=== PATIENT | male | born 1945 | race Caucasian/White ===

== ENCOUNTER 2020-09-16 08:50 | Emergency (ER) | payer OTHER ==
--- NOTE | 2020-09-16 08:56 | ED Physician Documentation ---
PD HPI CHEST PAIN - Stated complaint Stated Complaint: PALPITATIONS - History obtained from History obtained from: Patient - History of Present Illness Timing - onset: How many hours ago (7-8) Timing - onset during: Sleep Timing - details: Abrupt onset, Still present (He has had episodes of fast heart rate and palpitations at of lasted for several minutes up to several hours. The episode last night started around 1 AM and has continued into this morning so he came in for evaluation. Denies lightheadedness dyspnea nor chest pain.) Quality: Tightness Location: Substernal Associated symptoms: Palpitations. No: Shortness of air, Nausea, Feeling faint / dizzy Similar symptoms before: Diagnosis (He has had similar episodes in the past and I had a 2-week heart monitor through his primary care in the [place]. He states he believes he had an episode of atrial fibrillation during it. He does not have the report with him. He currently does not take any medications for these, except aspirin.) Recently seen: Clinic Review of Systems Constitutional: denies: Fever, Chills Nose: denies: Rhinorrhea / runny nose, Congestion Throat: denies: Sore throat Cardiac: reports: Other (he is active and denies any exetional CP nor palpitations with activity. They have all occured at night during rest/sleep.). denies: Chest pain / pressure, Palpitations, Pedal edema, Calf pain Respiratory: denies: Dyspnea, Cough GI: denies: Nausea, Vomiting Endocrine: denies: Weight loss, Weight gain PD PAST MEDICAL HISTORY - Past Medical History Cardiovascular: Arrhythmia (he believes it was atrial fib episode on his 2 week monitor recently) Respiratory: None Neuro: None Endocrine/Autoimmune: None - Present Medications Home Medications: Ambulatory Orders Medication Instructions Recorded Confirmed Anastrozole 0.5 mg PO DAILY 09/16/20 09/16/20 Sildenafil Citrate [Revatio] 1 tab PO DAILY 09/16/20 09/16/20 Testosterone [Androgel] 09/16/20 diltiaZEM [Cardizem] 60 mg PO ONCE PRN #5 tab 09/16/20 - Allergies Allergies/Adverse Reactions: Allergies Allergy/AdvReac Type Severity Reaction Status Date / Time No Known Drug Allergies Allergy Verified 09/16/20 09:26 - Living Situation Living Situation: reports: With spouse/s.o. Living Arrangement: reports: At home - Social History Does the pt smoke?: No Does the pt have substance abuse?: No - Family History Family history: reports: Non contributory PD ED PE NORMAL - Vitals Vital signs reviewed: Yes - General General: Alert and oriented X 3, No acute distress, Well developed/nourished - HEENT HEENT: Moist mucous membranes, Pharynx benign - Neck Neck: Supple, no meningeal sign, No adenopathy, Thyroid normal - Cardiac Cardiac: RRR (heart rate is just slightly elevated on arrival and when first on monitor, appears sinus tachycardia. ), No murmur - Respiratory Respiratory: No respiratory distress, Clear bilaterally - Abdomen Abdomen: Soft, Non tender - Back Back: No CVA TTP - Derm Derm: Normal color, Warm and dry - Extremities Extremities: No edema, No calf tenderness / cord - Neuro Neuro: Alert and oriented X 3, No motor deficit, Normal speech Results - Vitals Vitals: Vital Signs - 24 hr 09/16/20 09/16/20 09/16/20 08:55 09:25 10:09 Temperature 36.4 C L Heart Rate 111 H 90 86 Respiratory 20 18 16 Rate Blood Pressure 125/80 121/70 107/84 H O2 Saturation 99 98 99 Oxygen O2 Source Room air - EKG (time done) 08:53 Rate: Rate (enter#) (105) Rhythm: Sinus tachycardia [place]: Normal Intervals: Normal [place] QRS: Normal Ischemia: Normal ST segments. No: ST elevation c/w ischemia, ST depression - Labs Labs: Laboratory Tests 09/16/20 09/16/20 09/16/20 08:55 08:55 08:55 WBC 7.1 RBC 4.36 L Hgb 14.4 Hct 43.7 MCV 100.2 H MCH 33.0 H MCHC 33.0 RDW 12.0 Plt Count 223 MPV 9.5 Neut # (Auto) 3.7 Lymph # (Auto) 2.5 [place] # (Auto) 0.6 Eos # (Auto) 0.1 Baso # (Auto) 0.1 Absolute Nucleated RBC 0.00 Nucleated RBC % 0.0 Sodium 142 Potassium 3.7 Chloride 101 Carbon Dioxide 28 Anion Gap 13.0 BUN 28 H Creatinine 1.1 Estimated GFR (MDRD) 65 L Glucose 100 Calcium 9.7 Magnesium 2.0 TSH 2.78 PD MEDICAL DECISION MAKING - ED course Complexity details: considered differential (Discussed with the patient various treatment options. His preference would be to have medication on hand to take with an episode to try to stop it sooner. This seemed a reasonable initial approach. Likely A. fib versus SVT and it has converted on arrival here without intervention.), d/w patient Departure - Departure Disposition: 01 Home, Self Care Clinical Impression: Paroxysmal atrial fibrillation Condition: Stable Record reviewed to determine appropriate education?: Yes Instructions: ED Afib Follow-Up: KENZIE FLORES MD [Primary Care Provider] - Prescriptions: diltiaZEM [Cardizem] 60 mg PO ONCE PRN #5 tab PRN Reason: Tachycardia Comments: Stay well-hydrated. Continue usual medication of an aspirin a day and your supplements including potassium supplement. Perhaps increase your potassium supplements slightly for the next week or 2. Presume these are episodes of atrial fibrillation. Contact your primary care to see what exactly your heart rhythm monitor had shown, whether atrial fibrillation or other SVT. When you get a recurrent episode, make sure you are well hydrated with 2 or 3 more glasses of water and wait half an hour and see if it gets better on its own. If not then try the diltiazem tablet and see if it helps you. It will take about 30 to 45 minutes for it to have an effect. Return if persistent episode despite the above treatments. Otherwise follow-up with your primary care regarding further treatments. Discharge Date/Time: 09/16/20 10:10
[2020-09-16 09:28] LABS: BASOPHILS # (AUTO) 0.1 10^3/uL (0.0-0.1); BASOPHILS % (AUTO) 0.7 %; EOSINOPHILS # (AUTO) 0.1 10^3/uL (0.0-0.7); EOSINOPHILS % (AUTO) 1.7 %; HGB - HEMOGLOBIN 14.4 g/dL (14.0-18.0); LYMPHOCYTES # (AUTO) 2.5 10^3/uL (1.5-3.5); LYMPHOCYTES % (AUTO) 35.5 %; MEAN CORPUSCULAR VOLUME 100.2 fL (80.0-94.0); MEAN PLATELET VOLUME 9.5 fL (7.4-11.4); MONOCYTES # (AUTO) 0.6 10^3/uL (0.0-1.0); MONOCYTES % (AUTO) 9.1 %; NEUTROPHILS # (AUTO) 3.7 10^3/uL (1.5-6.6); NEUTROPHILS % (AUTO) 52.9 %; PLT - PLATELET COUNT 223 10^3/uL (130-450); RED BLOOD COUNT 4.36 10^6/uL (4.70-6.10); WHITE BLOOD COUNT 7.1 x10^3/uL (4.8-10.8)
[2020-09-16 09:37] LABS: CALCIUM 9.7 mg/dL (8.5-10.3); CREATININE 1.1 mg/dL (0.6-1.2)
[2020-09-16 10:09] VITALS: BP 107/84
== END 2020-09-16 10:10 | disposition home or self-care (01) ==
LOC: ED 08:50
DX: I48.0 Paroxysmal atrial fibrillation (principal)
CPT/HCPCS: 36415; 80048; 83735; 84443; 85025; 93005; 99284

== ENCOUNTER 2020-12-07 21:47 | Emergency (ER) | payer OTHER ==
--- NOTE | 2020-12-07 22:08 | ED Physician Documentation ---
PD HPI MALE - Stated complaint Stated Complaint: MALE - Chief complaint Chief Complaint: UTI - History obtained from History obtained from: Patient - History of Present Illness Timing - onset: Today Timing - duration: Minutes Timing - details: Abrupt onset, Still present Associated symptoms: Hematuria. No: Dysuria, Urinary frequency PD HPI MALE CONTRIB FACTORS: Not sexually active. No: Indwelling catheter Similar symptoms before: Has not had sx before Recently seen: Emergency Dept (two months ago) - Additional information Additional information: Previously well 75-year-old man on testosterone has developed a subconjunctival hemorrhage in his right eye 1 week ago and today out of nowhere he has developed acute hematuria. He indicates that he works out his normal amount and did look a bit less today than he usually does. He indicates that he has had a prior issue with rapid heart rate and believes he has had atrial fibrillation and he is on aspirin with that. He is not on any other formal anticoagulant. He denies any specific pain denies any difficulty with urination denies any injuries. He has not had this previously. Review of Systems Constitutional: denies: Fever, Chills, Myalgias, Fatigue Eyes: denies: Decreased vision Ears: denies: Ear pain Nose: denies: Rhinorrhea / runny nose, Congestion, Foreign Body Throat: denies: Sore throat Cardiac: denies: Chest pain / pressure, Palpitations Respiratory: denies: Dyspnea, Cough GI: denies: Abdominal Pain, Nausea, Vomiting : reports: Hematuria. denies: Dysuria, Frequency, Discharge Skin: denies: Rash Musculoskeletal: denies: Neck pain, Back pain, Extremity pain PD PAST MEDICAL HISTORY - Past Medical History Cardiovascular: Arrhythmia (he believes it was atrial fib episode on his 2 week monitor recently) Respiratory: None Neuro: None Endocrine/Autoimmune: None - Present Medications Home Medications: Ambulatory Orders Medication Instructions Recorded Confirmed Anastrozole 0.5 mg PO DAILY 09/16/20 09/16/20 Sildenafil Citrate [Revatio] 1 tab PO DAILY 09/16/20 09/16/20 Testosterone [Androgel] 09/16/20 diltiaZEM [Cardizem] 60 mg PO ONCE PRN #5 tab 09/16/20 - Allergies Allergies/Adverse Reactions: Allergies Allergy/AdvReac Type Severity Reaction Status Date / Time No Known Drug Allergies Allergy Verified 09/16/20 09:26 - Social History Does the pt smoke?: No Smoking Status: Never smoker Does the pt have substance abuse?: No PD ED PE NORMAL - Vitals Vital signs reviewed: Yes (Normal) - General General: Alert and oriented X 3, No acute distress, Well developed/nourished - HEENT HEENT: Atraumatic, PERRL, EOMI - Neck Neck: Supple, no meningeal sign, No bony TTP - Cardiac Cardiac: RRR, No murmur - Respiratory Respiratory: No respiratory distress, Clear bilaterally - Abdomen Abdomen: Soft, Non tender - Back Back: No CVA TTP, No spinal TTP - Derm Derm: Normal color, Warm and dry, No rash - Extremities Extremities: No deformity, No edema - Neuro Neuro: Alert and oriented X 3, 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-12 intact, No motor deficit, No sensory deficit, Normal speech Eye Opening: Spontaneous Motor: Obeys Commands Verbal: Oriented GCS Score: 15 - Psych Psych: Normal mood, Normal affect Results - Vitals Vitals: Vital Signs - 24 hr 12/07/20 12/08/20 12/08/20 21:59 00:03 02:57 Temperature 36.9 C Heart Rate 83 76 83 Respiratory 18 18 18 Rate Blood Pressure 126/72 146/71 H 122/68 O2 Saturation 97 99 98 12/08/20 04:00 Temperature Heart Rate 100 Respiratory 18 Rate Blood Pressure 123/85 H O2 Saturation 100 Oxygen O2 Source Room air - Labs Labs: Laboratory Tests 12/07/20 12/07/20 12/07/20 22:10 22:10 22:10 WBC 6.0 RBC 3.62 L Hgb 11.9 L Hct 35.7 L MCV 98.6 H MCH 32.9 H MCHC 33.3 RDW 12.4 Plt Count 168 MPV 8.5 Neut # (Auto) 4.0 Lymph # (Auto) 1.3 L [place] # (Auto) 0.6 Eos # (Auto) 0.0 Baso # (Auto) 0.0 Absolute Nucleated RBC 0.00 Nucleated RBC % 0.0 PT 12.4 INR 1.1 APTT 30.5 Sodium 142 Potassium 4.0 Chloride 103 Carbon Dioxide 29 Anion Gap 10.0 BUN 21 H Creatinine 1.0 Estimated GFR (MDRD) 72 L Glucose 100 Calcium 9.3 Total Bilirubin 0.7 AST 35 ALT 27 Alkaline Phosphatase 72 Total Protein 7.2 Albumin 4.3 Globulin 2.9 Albumin/Globulin Ratio 1.5 Lipase 39 Urine Color Urine Clarity Urine pH Ur Specific [place] Urine Protein Urine Glucose (UA) Urine Ketones Urine Occult Blood Urine Nitrite Urine Bilirubin Urine Urobilinogen Ur Leukocyte Esterase Urine RBC Urine WBC Ur Squamous Epith Cells Urine Bacteria Ur Microscopic Review Urine Culture Comments 12/07/20 22:34 WBC RBC Hgb Hct MCV MCH MCHC RDW Plt Count MPV Neut # (Auto) Lymph # (Auto) [place] # (Auto) Eos # (Auto) Baso # (Auto) Absolute Nucleated RBC Nucleated RBC % PT INR APTT Sodium Potassium Chloride Carbon Dioxide Anion Gap BUN Creatinine Estimated GFR (MDRD) Glucose Calcium Total Bilirubin AST ALT Alkaline Phosphatase Total Protein Albumin Globulin Albumin/Globulin Ratio Lipase Urine Color RED/BLOODY Urine Clarity BLOODY Urine pH 7.0 Ur Specific [place] 1.025 Urine Protein >=300 H Urine Glucose (UA) NEGATIVE Urine Ketones NEGATIVE Urine Occult Blood LARGE H Urine Nitrite POSITIVE H Urine Bilirubin NEGATIVE Urine Urobilinogen 0.2 (NORMAL) Ur Leukocyte Esterase NEGATIVE Urine RBC TNTC H Urine WBC 0-3 Ur Squamous Epith Cells NONE SEEN Urine Bacteria None Seen Ur Microscopic Review INDICATED Urine Culture Comments INDICATED - Rads (name of study) CT ab/pel with Radiology: Prelim report reviewed (Impression: Left posterior lateral exophytic bladder mass extending into the bladder lumen with associated blood clot in the bladder. This appearance could also potentially be due to blood products within a bladder diverticulum and in the bladder lumen. Consider cystoscopy. Nonemergent/incidental), EMP read indepedently, See rad report PD MEDICAL DECISION MAKING - ED course Complexity details: reviewed results, re-evaluated patient, considered differential, d/w patient ED course: Previously well 75-year-old male has developed some hematuria and CT scanning shows what appears to be a bladder diverticula for blood a Hubbard catheter is placed with three-way irrigation and the bladder is irrigated to clear.The patient had over a liter out and will need to have the cath. Place for likely a week or more. The patient will need follow-up with urology and he does not have a urologist. We will refer him to urology in [place]. Departure - Departure Disposition: 01 Home, Self Care Clinical Impression: Clot retention of urine Condition: Stable Instructions: ED Hematuria, ED Catheter Care Hubbard, ED Retention Urinary Male Follow-Up: KENZIE FLORES MD [Primary Care Provider] - Mary Hogan MD [Physician No Access] - Neil Rothman MD [Provider Admit Priv/Credential] - Skinny Nazario MD [Provider Admit Priv/Credential] - Comments: Today the blood in the urine looks like it comes from the edge of a diverticula in the bladder and this has caused some clot retention. This will require the placement of the Hubbard catheter for 1 or more weeks. You will need a follow-up with urology for further evaluation in the next week. I have left the number of [facility] clinics and the names of 3 urologists. Call them on Thursday to e an appointment. In the meantime if you develop a problem with not being able to urinate or with urine stopping from coming through the bag, or you develop radha bleeding again, return to the emergency department for further treatment.
[2020-12-07 22:15] LABS: BASOPHILS % (AUTO) 0.7 %; EOSINOPHILS % (AUTO) 0.5 %; HCT - HEMATOCRIT 35.7 % (42.0-52.0); HGB - HEMOGLOBIN 11.9 g/dL (14.0-18.0); LYMPHOCYTES # (AUTO) 1.3 10^3/uL (1.5-3.5); LYMPHOCYTES % (AUTO) 21.5 %; MEAN CORPUSCULAR HEMOGLOBIN 32.9 pg (27.0-31.0); MEAN CORPUSCULAR HGB CONC 33.3 g/dL (32.0-36.0); MEAN CORPUSCULAR VOLUME 98.6 fL (80.0-94.0); MEAN PLATELET VOLUME 8.5 fL (7.4-11.4); MONOCYTES # (AUTO) 0.6 10^3/uL (0.0-1.0); MONOCYTES % (AUTO) 9.4 %; NEUTROPHILS % (AUTO) 67.7 %; PLT - PLATELET COUNT 168 10^3/uL (130-450); RED BLOOD COUNT 3.62 10^6/uL (4.70-6.10); RED CELL DISTRIBUTION WIDTH 12.4 % (12.0-15.0)
[2020-12-07 22:24] LABS: INR 1.1 (0.8-1.2); PT - PROTHROMBIN TIME 12.4 secs (9.9-12.6)
[2020-12-07 22:29] LABS: ALBUMIN 4.3 g/dL (3.2-5.5); ALBUMIN/GLOBULIN RATIO 1.5 (1.0-2.2); BILIRUBIN,TOTAL 0.7 mg/dL (0.2-1.0); CALCIUM 9.3 mg/dL (8.5-10.3); TOTAL PROTEIN 7.2 g/dL (6.7-8.2)
[2020-12-07 22:33] LABS: PARTIAL THROMBOPLASTIN TIME 30.5 secs (24.9-33.3)
[2020-12-07 22:47] LABS: BILIRUBIN,URINE NEGATIVE (NEGATIVE); GLUCOSE, URINE (UA) NEGATIVE (NEGATIVE); KETONES,URINE (UA) NEGATIVE (NEGATIVE); LEUKOCYTE ESTERASE, URINE NEGATIVE (NEGATIVE); NITRITE,URINE POSITIVE (NEGATIVE); OCCULT BLOOD,URINE LARGE (NEGATIVE); PROTEIN,URINE >=300 mg/dL (NEGATIVE); UROBILINOGEN,URINE 0.2 (NORMAL) E.U./dL (NORMAL)
[2020-12-07 22:54] LABS: CLARITY,URINE BLOODY (CLEAR); RBC,URINE TNTC /HPF (0-5); WBC,URINE 0-3 /HPF (0-3)
[2020-12-07 22:55] LABS: BACTERIA,URINE None Seen /HPF (None Seen); SQUAMOUS EPITHELIAL CELL,UR NONE SEEN (<= Few)
[2020-12-08] MEDS ORDERED: IOPAMIDOL-300 100 ML VIAL ONE (00:58)
[2020-12-08] MEDS ORDERED: IOPAMIDOL-300 100 ML VIAL IVP ONE (01:27)
[2020-12-08] MEDS ORDERED: SODIUM CHLORIDE 0.9% 1,000 ML IV STA (01:35)
[2020-12-08] MEDS ORDERED: LIDOCAINE 2% URO-JET 5 ML SYRINGE UR STA (02:28)
[2020-12-08 06:01] VITALS: BP 122/67
--- NOTE | 2020-12-08 08:19 | CT Report ---
PROCEDURE: Abdomen/Pelvis W INDICATIONS: hematuria CONTRAST: IV CONTRAST: Isovue 300 ml: 100 PO CONTRAST: *NO PO CONTRAST TECHNIQUE: After the administration of nonionic IV contrast, 5 mm thick sections acquired from the diaphragms to the symphysis. 5 mm thick coronal and sagittal reformats were acquired. For radiation dose reducti on, the following was used: automated exposure control, adjustment of mA and/or kV according to monica ent size. COMPARISON: None. FINDINGS: Image quality: Excellent. ABDOMEN: Lung bases: Lung bases are clear. Heart size is normal. Solid organs: Liver and spleen are normal in size and enhancement. Splenic granulomas are seen. Gal lbladder wall does not appear thickened. Biliary system is non dilated. Pancreas enhances normall y. No adrenal nodules. Kidneys demonstrate normal size and enhancement, without hydronephrosis. Th ere is a water density cyst measuring 1.5 cm within the lateral right kidney. Peritoneum and bowel: Bowel loops demonstrate normal wall thickness and caliber. No free fluid or a ir. There is a moderate amount of stool seen within the colon. Nodes and vessels: No retroperitoneal or mesenteric adenopathy by size criteria. Aorta and inferior vena cava are normal in size. Miscellaneous: No ventral hernias. PELVIS: Genitourinary: Bladder is abnormal, with hyperdense material posteriorly, which most likely relates t o blood. 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 Miscellaneous: No inguinal hernias or adenopathy. Bones: No suspicious bony lesions. No vertebral body compression fractures. There is focal L5-S1 de generative change. Milder degenerative changes are seen elsewhere. IMPRESSION: Blood can be seen layering within the urinary bladder and within a left-sided bladder diverticulum. A cause of hematuria is not identified. No stones or renal masses are seen. Urology consultation for consideration of cystoscopy is recommended. Please also consider a dedicated hematuria protocol CT. There is a moderate amount of stool seen within the colon. Please correlate with clinical constipatio n. Incidental note is made of: Prior granulomatous exposure. Focal L5-S1 degenerative change Note: No significant discrepancy from the preliminary report. Reviewed by: Ravindra Dutton MD on 12/08/2020 7:17 AM AKDT Approved by: Ravindra Dutton MD on 12/08/2020 7:17 AM KENNY Station ID: [id number]
== END 2020-12-08 06:03 | disposition home or self-care (01) ==
LOC: ED 21:47
DX: R33.8 Other retention of urine (principal); N32.3 Diverticulum of bladder
CPT/HCPCS: 36415; 51700; 80053; 81001; 81003; 83690; 85025; 85610; 85730; 87086; 99284

== ENCOUNTER 2020-12-08 13:35 | Emergency (ER) | payer OTHER ==
--- NOTE | 2020-12-08 14:33 | ED Physician Documentation ---
History of Present Illness - Stated complaint Stated Complaint: BLOOD IN URINE - Chief complaint Chief Complaint: Abd Pain - Additonal information Additional information: 75-year-old male returns to the emergency department for evaluation of persistent hematuria. This gentleman was seen last night in the emergency department for blood in his urine and urinary retention. A CT scan was completed and it did show a bladder diverticula. Ultimately he required Hubbard catheter placement. In addition to this he did have bladder irrigation. He was discharged home with recommendations to follow-up with urology. He presents here today because he is concerned about the amount of blood in his Hubbard catheter. He reports that it continues to drain but he is able to express large clots. He has no fevers denies abdominal pain flank pain or suprapubic pain. Review of Systems Constitutional: denies: Fever, Chills Eyes: reports: Reviewed and negative Ears: reports: Reviewed and negative Nose: reports: Reviewed and negative Throat: reports: Dental pain / toothache Cardiac: reports: Reviewed and negative Respiratory: reports: Reviewed and negative GI: reports: Reviewed and negative : reports: Hematuria Skin: reports: Reviewed and negative Musculoskeletal: reports: Reviewed and negative Neurologic: reports: Reviewed and negative Psychiatric: reports: Reviewed and negative Endocrine: reports: Reviewed and negative PD PAST MEDICAL HISTORY - Past Medical History Past Medical History: Yes Cardiovascular: Atrial fibrillation, Arrhythmia Respiratory: None Neuro: None Endocrine/Autoimmune: None : Benign prostate hypertrophy, Retention, Other HEENT: None Psych: None Musculoskeletal: None - Past Surgical History Past Surgical History: Yes HEENT: Tonsil/Adenoidectomy - Present Medications Home Medications: Ambulatory Orders Medication Instructions Recorded Confirmed Anastrozole 0.5 mg PO DAILY 09/16/20 12/08/20 Sildenafil Citrate [Revatio] 1 tab PO DAILY 09/16/20 12/08/20 Testosterone [Androgel] 1 applic TOP ONCE 09/16/20 12/08/20 diltiaZEM [Cardizem] 60 mg PO ONCE PRN #5 tab 09/16/20 12/08/20 - Allergies Allergies/Adverse Reactions: Allergies Allergy/AdvReac Type Severity Reaction Status Date / Time Penicillins Allergy Unknown Verified 12/08/20 13:40 - Social History Does the pt smoke?: No Smoking Status: Never smoker Does the pt drink ETOH?: No Does the pt have substance abuse?: No - Immunizations Immunizations are current?: Yes PD ED PE EXPANDED - General General: Alert, No acute distress - Cardiac Cardiac: Regular Rate, Radial strong equal, Cap refill < 2 sec - Respiratory Respiratory: Clear to ausultation antonina. No: Distress, Labored - Abdomen Abdomen: Normal Bowel sounds. No: Tender to palpation - Male Male : Other (Large amount of bloody discharge in the Hubbard catheter bag. Urine appears to be draining.) - Derm Derm: Normal color, Warm and dry. No: Rash Results - Vitals Vitals: Vital Signs - 24 hr 12/08/20 12/08/20 12/08/20 13:40 14:58 16:23 Temperature 36.7 C Heart Rate 88 72 73 Respiratory 16 18 18 Rate Blood Pressure 110/62 115/66 O2 Saturation 98 100 99 Oxygen O2 Source Room air - Labs Labs: Laboratory Tests 12/08/20 12/08/20 14:40 14:50 WBC 12.0 H RBC 3.34 L Hgb 11.3 L Hct 33.0 L MCV 98.8 H MCH 33.8 H MCHC 34.2 RDW 12.4 Plt Count 175 MPV 9.0 Urine Color RED/BLOODY Urine Clarity CLOUDY Urine pH 7.0 Ur Specific [place] 1.010 Urine Protein >=300 H Urine Glucose (UA) 100 H Urine Ketones 15 H Urine Occult Blood LARGE H Urine Nitrite POSITIVE H Urine Bilirubin NEGATIVE Urine Urobilinogen 4 H Ur Leukocyte Esterase MODERATE H Urine RBC TNTC H Urine WBC 6-10 H Ur Squamous Epith Cells RARE Squamous Urine Bacteria None Seen Urine Culture Comments INDICATED PD MEDICAL DECISION MAKING - ED course Complexity details: reviewed results, re-evaluated patient, d/w patient ED course: 75-year-old male presents emergency department for concerns of excessive hematuria in his Hubbard catheter that was placed last night in the emergency department after he had urinary retention and hematuria. A subsequent CT scan did show a bladder diverticula. Here in the emergency department on presentation his urine was frankly bloody and multiple large clots were obstructing the flow of the urine. In ED bladder scan showed however a residual of only 151 mL. Given the amount of blood a repeat hemogram was completed and it did show a mild drop from 11.9 to 11.6. We did do 4 L of continuous bladder irrigation here in the emergency department. Following the 4 L the patient is draining nearly clear urine with no further clots visible. Given the the concern of hematuria and bladder diverticula it was impressed upon the patient that it is important that he continue to follow-up with urology. Emergent return precautions were discussed for concerns of obstruction or worsening hematuria. Departure - Departure Disposition: 01 Home, Self Care Clinical Impression: Bladder diverticulum, Hubbard catheter in place prior to arrival Hematuria Qualifiers: Hematuria type: gross Qualified Code(s): R31.0 - Gross hematuria Condition: Stable Record reviewed to determine appropriate education?: Yes Comments: Mannie kingston were seen in the emergency department today for an excessive amount of blood and clots in your Hubbard catheter. This blood is likely coming from the diverticula in your bladder. We were able to successfully irrigate your bladder free of the clots. However it is very important that you continue to follow-up with urology as already Discussed and referred. If your hematuria worsens or you have clots that again obstruct the flow of your catheter you will need to return immediately to the emergency department. Indwelling Hubbard catheters can lead to urinary or bladder infection. If you develop flank pain, fevers chills or have uncontrolled nausea and vomiting or any concerns of infection within the urine please return to the emergency department for a second evaluation.
[2020-12-08 14:49] LABS: HGB - HEMOGLOBIN 11.3 g/dL (14.0-18.0); MEAN CORPUSCULAR HEMOGLOBIN 33.8 pg (27.0-31.0); MEAN CORPUSCULAR HGB CONC 34.2 g/dL (32.0-36.0); MEAN CORPUSCULAR VOLUME 98.8 fL (80.0-94.0); RED BLOOD COUNT 3.34 10^6/uL (4.70-6.10); RED CELL DISTRIBUTION WIDTH 12.4 % (12.0-15.0)
[2020-12-08 15:26] LABS: BILIRUBIN,URINE NEGATIVE (NEGATIVE); GLUCOSE, URINE (UA) 100 mg/dL (NEGATIVE); KETONES,URINE (UA) 15 mg/dL (NEGATIVE); LEUKOCYTE ESTERASE, URINE MODERATE (NEGATIVE); NITRITE,URINE POSITIVE (NEGATIVE); OCCULT BLOOD,URINE LARGE (NEGATIVE); PROTEIN,URINE >=300 mg/dL (NEGATIVE); UROBILINOGEN,URINE 4 E.U./dL (NORMAL)
[2020-12-08 15:27] LABS: BACTERIA,URINE None Seen /HPF (None Seen); CLARITY,URINE CLOUDY (CLEAR); RBC,URINE TNTC /HPF (0-5); SQUAMOUS EPITHELIAL CELL,UR RARE Squamous (<= Few)
[2020-12-08 17:00] VITALS: BP 123/72
== END 2020-12-08 17:11 | disposition home or self-care (01) ==
LOC: ED 13:35
DX: R33.8 Other retention of urine (principal); N32.3 Diverticulum of bladder; Z97.8 Presence of other specified devices
CPT/HCPCS: 36415; 51700; 51798; 74177; 80053; 81001; 83690; 85025; 85027; 85610; 85730; 87086; 99283; 99284; Q9967; 81003

== ENCOUNTER 2020-12-10 09:42 | Observation (INO) | payer OTHER ==
--- NOTE | 2020-12-10 10:22 | ED Physician Documentation ---
PD HPI MALE - Stated complaint Stated Complaint: CATH CLOG - Chief complaint Chief Complaint: Abd Pain - History obtained from History obtained from: Patient - History of Present Illness Timing - onset: How many days ago (4) Timing - duration: Days (4) Timing - details: Abrupt onset, Still present Associated symptoms: Hematuria (Patient noted onset of gross hematuria 4 days ago without any pain fevers or flank pain. Seen in the ER and had a urine test and blood tests without any signs of infection. Subsequently had urinary retention with clots and was seen again in the ER with Hubbard placed and bladder irrigated.). No: Dysuria, Genital sore / lesion Recently seen: Emergency Dept (Seen in our ER 4 days ago with the initial hematuria and then again for retention with clots in Hubbard placement. He had been irrigating this at home. He felt clogged again and seen at [facility] last night with irrigation of the catheter again. He was referred to urology. No admission.). No: Clinic (From the ER the patient was referred to urology in [facility] but they told the patient he needed a referral from his primary care. He talked with his primary care who is trying to expedite a referral but it was likely going to take a few weeks. He was seen again at [facility] for same.) Review of Systems Constitutional: denies: Fever, Chills Nose: denies: Rhinorrhea / runny nose, Congestion Throat: denies: Sore throat Cardiac: reports: Palpitations (intermittently about once per month, that lasts for minutes to hours c/w atrial fib. Not chronic.). denies: Chest pain / pressure Respiratory: denies: Cough GI: denies: Abdominal Pain, Nausea, Vomiting, Diarrhea : reports: Hematuria Skin: denies: Rash, Lesions Musculoskeletal: denies: Extremity swelling Neurologic: reports: Generalized weakness. denies: Near syncope, Headache PD PAST MEDICAL HISTORY - Past Medical History Cardiovascular: Atrial fibrillation (paroxysmal, about once monthly, on ASA. No anticoagulants. ), Arrhythmia Respiratory: None Neuro: None Endocrine/Autoimmune: None : Benign prostate hypertrophy, Retention, Other HEENT: None Psych: None Musculoskeletal: None - Past Surgical History Past Surgical History: Yes HEENT: Tonsil/Adenoidectomy - Present Medications Home Medications: Ambulatory Orders Medication Instructions Recorded Confirmed Anastrozole 0.5 mg PO DAILY 09/16/20 12/10/20 Sildenafil Citrate [Revatio] 1 tab PO DAILY 09/16/20 12/10/20 Testosterone [Androgel] 1 applic TOP ONCE 09/16/20 12/10/20 diltiaZEM [Cardizem] 60 mg PO ONCE PRN #5 tab 09/16/20 12/10/20 - Allergies Allergies/Adverse Reactions: Allergies Allergy/AdvReac Type Severity Reaction Status Date / Time Penicillins Allergy Unknown Verified 12/10/20 10:01 - Living Situation Living Situation: reports: Alone Living Arrangement: reports: At home - Social History Does the pt smoke?: No Smoking Status: Never smoker Does the pt drink ETOH?: No Does the pt have substance abuse?: No - Family History Family history: reports: Non contributory - Immunizations Immunizations are current?: Yes PD ED PE NORMAL - Vitals Vital signs reviewed: Yes - General General: Alert and oriented X 3, No acute distress, Well developed/nourished - HEENT HEENT: Moist mucous membranes, Pharynx benign - Neck Neck: Supple, no meningeal sign, No adenopathy - Cardiac Cardiac: RRR (initially regular with mild tachycardia. ), No murmur - Respiratory Respiratory: Clear bilaterally - Abdomen Abdomen: Soft, Non tender - Male Male : Other (Three-way Hubbard catheter in place with some clots in the visible tubing and gross hematuria. Bladder scanner showed only about 70 mils in the b ladder.) - Rectal Rectal: Deferred - Back Back: No CVA TTP - Derm Derm: Normal color, Warm and dry, No rash - Extremities Extremities: No tenderness to palpate, Normal ROM s pain, No edema, No calf tenderness / cord - Neuro Neuro: Alert and oriented X 3, No motor deficit, Normal speech Results - Vitals Vitals: Vital Signs - 24 hr 12/10/20 12/10/20 12/10/20 09:57 11:40 13:14 Temperature 36.4 C L Heart Rate 117 H 88 68 Respiratory 20 16 18 Rate Blood Pressure 107/63 115/84 H 105/84 H O2 Saturation 97 100 96 12/10/20 12/10/20 12/10/20 13:48 14:24 14:49 Temperature Heart Rate 150 H 156 H 97 Respiratory 16 15 14 Rate Blood Pressure 119/70 102/66 112/63 O2 Saturation 99 94 100 12/10/20 12/10/20 15:37 17:09 Temperature Heart Rate 99 108 H Respiratory 16 Rate Blood Pressure 93/64 113/88 H O2 Saturation 96 Oxygen O2 Source Room air - EKG (time done) 14:06 Rate: Rate (enter#) (150) Rhythm: Atrial fibrillation [place]: Normal Ischemia: Normal ST segments, ST depression (lateral, likely rate related. ). No: ST elevation c/w ischemia - Labs Labs: Laboratory Tests 12/10/20 12/10/20 13:53 13:53 WBC 11.1 H RBC 2.63 L Hgb 8.8 L Hct 26.7 L MCV 101.5 H MCH 33.5 H MCHC 33.0 RDW 12.4 Plt Count 168 MPV 9.0 Neut # (Auto) 8.5 H Lymph # (Auto) 1.7 Harris # (Auto) 0.8 Eos # (Auto) 0.0 Baso # (Auto) 0.0 Absolute Nucleated RBC 0.00 Nucleated RBC % 0.0 Sodium 136 Potassium 3.8 Chloride 99 L Carbon Dioxide 24 Anion Gap 13.0 BUN 13 Creatinine 1.2 Estimated GFR (MDRD) 59 L Glucose 131 H Calcium 9.0 Total Bilirubin 0.8 AST 37 ALT 24 Alkaline Phosphatase 63 Total Protein 6.6 L Albumin 3.8 Globulin 2.8 Albumin/Globulin Ratio 1.4 Lipase 34 PD MEDICAL DECISION MAKING - ED course Complexity details: reviewed old records, re-evaluated patient, d/w systems management consultant (Urology cloud automation tester at [facility], who states the patient would best be treated hospitalized for more expeditious treatment, given the drop in Hgb. However they do not have beds available at this time.) ED course: The patient did have some urine retention mildly with clots. Bladder was irrigated here in the ER and the clots came out and he is draining still hematuria without clots at this time. We were trying to arrange urology follow- up and the patient did go then into fast rate atrial fibrillation. He felt somewhat generally weak and lightheaded with it. IV was started and he was given some fluids as well as diltiazem IV. This slowed his heart rate down from 160 down to 100-110 and then he converted back to sinus rhythm. Blood pressure remained good. He is feeling better at this time. During this we did check blood test of hemoglobin and electrolytes. His hemoglobin showed a drop from 11.3 down to 8.8 just over the last couple of days showing reasonable amount of continued hematuria. [facility] deferred treatment to other facilities. At this point however, there were no beds available at [facility]. With no beds available in other facilities, one possibility would be to have the patient here with bladder irrigation episodically and watching on the monitor and check serial hemoglobins over the next 6 to 12 hours. At that point [facility] is expecting bed availability either later this evening or tomorrow and we could transfer at that point. The nursing production planning supervisor talked with the hospitalist about that possibility. He defers it to the evening hospitalist for confirmation if no beds are as yet available and other facilities. Departure - Departure Clinical Impression: Clot retention of urine, Paroxysmal atrial fibrillation, Drop in hemoglobin Hematuria Qualifiers: Hematuria type: gross Qualified Code(s): R31.0 - Gross hematuria Condition: Stable Record reviewed to determine appropriate education?: Yes Follow-Up: KENZIE FLORES MD [Physician No Access] - [facility] [Provider Group] Comments: Use the saline to irrigate the bladder periodically through the day through the Hubbard. As of this instruction time, neither Dr. Flores nor the [place] urology have called back. I would not anticipate them wanting to transfer you there directly today. As such I think we can discharge you home and when they do call I will try to arrange a closer follow-up with them for you. Call Dr. Flores's office tomorrow to see if they can expedite further follow- up or referrals.
[2020-12-10 14:05] LABS: BASOPHILS % (AUTO) 0.3 %; EOSINOPHILS % (AUTO) 0.1 %; HCT - HEMATOCRIT 26.7 % (42.0-52.0); HGB - HEMOGLOBIN 8.8 g/dL (14.0-18.0); LYMPHOCYTES # (AUTO) 1.7 10^3/uL (1.5-3.5); LYMPHOCYTES % (AUTO) 15.5 %; MEAN CORPUSCULAR HEMOGLOBIN 33.5 pg (27.0-31.0); MEAN CORPUSCULAR VOLUME 101.5 fL (80.0-94.0); MONOCYTES # (AUTO) 0.8 10^3/uL (0.0-1.0); NEUTROPHILS # (AUTO) 8.5 10^3/uL (1.5-6.6); NEUTROPHILS % (AUTO) 76.5 %; PLT - PLATELET COUNT 168 10^3/uL (130-450); RED BLOOD COUNT 2.63 10^6/uL (4.70-6.10); RED CELL DISTRIBUTION WIDTH 12.4 % (12.0-15.0); WHITE BLOOD COUNT 11.1 x10^3/uL (4.8-10.8)
[2020-12-10] MEDS ORDERED: SODIUM CHLORIDE 0.9% 500 ML IV STA (14:11)
[2020-12-10] MEDS ORDERED: diltiaZEM INJ 5 MG/ML VIAL IVP STA (14:11)
[2020-12-10 14:20] LABS: ALBUMIN 3.8 g/dL (3.2-5.5); ALBUMIN/GLOBULIN RATIO 1.4 (1.0-2.2); BILIRUBIN,TOTAL 0.8 mg/dL (0.2-1.0); CREATININE 1.2 mg/dL (0.6-1.2); POTASSIUM 3.8 mmol/L (3.5-5.0); TOTAL PROTEIN 6.6 g/dL (6.7-8.2)
[2020-12-10 20:25] LABS: B. PARAPERTUSSIS- RESP PCR PAN NOT DETECTED; B. PERTUSSIS- RESP PCR PANEL NOT DETECTED; C. PNEUMONIAE- RESP PCR PANEL NOT DETECTED; CORONAVIRUS 229E-RESP PCR NOT DETECTED; CORONAVIRUS HKU1-RESP PCR NOT DETECTED; CORONAVIRUS NL63-RESP PCR NOT DETECTED; CORONAVIRUS OC43-RESP PCR NOT DETECTED; HUMAN METAPNEUMOVIRUS NOT DETECTED; INFLUENZA A- RESP PCR PANEL NOT DETECTED; INFLUENZA B - RESP PCR PANEL NOT DETECTED; M. PNEUMONIAE- RESP PCR PANEL NOT DETECTED; PARAINFLUENZA VIRUS 1 NOT DETECTED; PARAINFLUENZA VIRUS 2 NOT DETECTED; PARAINFLUENZA VIRUS 3 NOT DETECTED; PARAINFLUENZA VIRUS 4 NOT DETECTED; RHINOVIRUS/ENTEROVIRUS NOT DETECTED; RSV- RESP PCR PANEL NOT DETECTED; SARS-CoV-2 -RESP PCR PANEL NOT DETECTED
[2020-12-10] MEDS ORDERED: HYDROcod/ACETAM 5/325 MG TABLET PO PRN (20:31)
[2020-12-10] MEDS ORDERED: SODIUM CHLORIDE FLUSH 0.9% 10 ML SYRINGE IVP PRN (20:31)
[2020-12-10] MEDS ORDERED: ACETAMINOPHEN 325 MG TABLET PO PRN (20:31)
[2020-12-10] MEDS ORDERED: ONDANSETRON ODT 4 MG TABLET TL PRN (20:31)
[2020-12-10] MEDS ORDERED: polyethylene glycoL 3350 17 GM PACKET PO PRN (20:37)
--- NOTE | 2020-12-10 20:47 | HISTORY & PHYSICAL EXAMINATION ---
Chief Complaint - Chief Complaint Chief Complaint: Red urine from Hubbard catheter History of Present Illness - Admitted From Admitted From:: Emergency department - History Obtained From Records Reviewed: Emergency department records from today and previous visits History obtained from: Patient and emergency room physician as well as medical record Exam Limitations: None - History of Present Illness HPI Comment/Other: Patient is a relatively healthy 75-year-old male who has history of Paroxysmal atrial fibrillation, not on anticoagulants, receiving testosterone replacement, who presented to the emergency room initiallyOn December 07, 2020 due to sudden onset of gross hematuria without any injury, medical procedure, or other known causes. He was seen in the emergency room and given a Hubbard catheter and discharged home with recommendations to follow-up with urology with scheduled outpatient urology clinic. He returned to the following day due to concerns of increasing amounts of gross hematuria along with clot formation noted in the Hubbard bag. CT scan of the abdomen pelvis was showing diverticuli of the bladder as the cause of this bleeding, and he had successful continuous bladder irrigation with clearance of the clots and was discharged home again. He presented to the emergency department again yesterday at [facility] for the same concerns and again had continuous bladder irrigation was sent home. He returned the third time in our ED and fourth visits in total for the same gross hematuria with clots. He had some bladder irrigation in the ER again today with liberation of clots, however this time his hemoglobin and hematocrit showed a significant drop From 11.3/33.0 2 days ago down to 8.8/26.7 todayan attempt was made to transfer the patient for inpatient urology assessment.He is required by his insurance to go to the [facility] however they do not have beds available, So Dr. Monson proceeded to attempt to transfer to other [facility] for urology consultation however no beds are available so admission here was requested pending successful transfer for inpatient ur ological consultation. In the ED, he was relatively stable with vital signs essentially normal or at times with moderately low blood pressures. He is otherwise asymptomatic not complaining of any pain, nausea, vomiting, fever, chills. He has some mild discomfort in the bladder but states he is able to manage that and has been able to massage with relief of pain and passage of clots. History - Past Medical History Cardiovascular: reports: Atrial fibrillation (paroxysmal, about once monthly, on ASA. No anticoagulants. ), Arrhythmia Respiratory: reports: None Neuro: reports: None Endocrine/Autoimmune: reports: None : reports: Benign prostate hypertrophy, Retention, Other HEENT: reports: None Psych: reports: None Musculoskeletal: reports: None MRSA Hx?: No - Past Surgical History HEENT: reports: Tonsil/Adenoidectomy - Family & Social History Living arrangement: At home Living Situation: Alone - Substance History Use: Uses substance without health or social issues: NONE - POLST Patient has POLST: No POLST Status: CPR Yes, Intubation No Meds/Allgy - Home Medications Home Medications: Ambulatory Orders Medication Instructions Recorded Confirmed Anastrozole 0.5 mg PO DAILY 09/16/20 12/10/20 Sildenafil Citrate [Revatio] 1 tab PO DAILY 09/16/20 12/10/20 Testosterone [Androgel] 1 applic TOP ONCE 09/16/20 12/10/20 diltiaZEM [Cardizem] 60 mg PO ONCE PRN #5 tab 09/16/20 12/10/20 - Allergies Allergies/Adverse Reactions: Allergies Allergy/AdvReac Type Severity Reaction Status Date / Time Penicillins Allergy Unknown Verified 12/10/20 10:01 Review of Systems - Constitutional Constitutional: denies: Fatigue, Fever, Chills - Eyes Eyes: reports: Other (Red R eye) - Cardiovascular Cariovascular: denies: Irregular heart rate, Palpitations, Chest pain - Respiratory Respiratory: denies: Cough, SOB at rest - Genitourinary Genitourinary: reports: Urgency, Hematuria. denies: Dysuria, Frequency, Flank pain - Integumentary Integumentary: reports: Other (Spider veins in legs, mild R orbit bruisin) - Psychiatric Psychiatric: denies: Depression - Hematologic/Lymphatic Hematologic/Lymphatic: reports: Blood clots. denies: Bruising, Petechiae Prior Level of Functionality: Fully independent and very active, exercises 6 days/week Exam - Vital Signs Reviewed Vital Signs: Yes Vital Signs: Vital Signs x48h Temp Pulse Resp BP Pulse Ox 12/10/20 20:10 36.5 C 90 17 121/83 H 99 12/10/20 19:07 87 14 105/62 98 12/10/20 17:09 108 H 16 113/88 H 96 12/10/20 15:37 99 93/64 05/10/21 14:49 97 14 112/63 100 12/10/20 14:24 156 H 15 102/66 94 12/10/20 13:48 150 H 16 119/70 99 12/10/20 13:14 68 18 105/84 H 96 - Physical Exam General Appearance: positive: No acute distress Eyes Bilateral: positive: Normal inspection ENT: positive: Other (Mild resolving right conjunctival hemorrhage with resultant right infraorbital resolving ecchymosis) Neck: positive: Nml inspection, Thyroid nml, No JVD Respiratory: positive: Chest non-tender, No respiratory distress, Breath sounds nml Cardiovascular: positive: Regular rate & rhythm, No murmur, No gallop Peripheral Pulses: positive: 2+ Abdomen: positive: Non-tender, No organomegaly, Nml bowel sounds, No distention Back: positive: Nml inspection Skin: positive: Color nml, No rash Extremities: positive: Non-tender, Full ROM, Nml appearance Neurologic/Psychiatric: positive: Oriented x3, CN's nml (2-12), Motor nml, Sensation nml Conclusion/Plan - Problem List (1) Gross hematuria Conclusion/Plan: Gross hematuria likely secondary to bladder diverticulum CT scan does not show any evidence of bladder mass, infection, but there are recommendations from radiology to pursue a hematuria CT protocol Plans are currently for attempt to transfer patient to facility with inpatient urology consultation available. At this point, would defer further imaging pending transfer as it will be more helpful to the receiving facility Urinalysis x2 shows no evidence of infection Continue to monitor hemodynamics closely as hemoglobin and hematocrit have dropped compared with previous visits but patient is otherwise hemodynamically stable Start with CBI with every shift bladder scans to ensure adequate emptying and successful irrigation, discontinue irrigation when urine is pink (2) Acute blood loss anemia Conclusion/Plan: Drop in H&H from 2 days prior from 11.3/33.0 reduced to 8.8/26.7 today He had a short bout of A. fib that resolved with oral diltiazem while in the emergency room today, but otherwise he has been hemodynamically stable Continue to monitor closely, transfuse less than 7 (3) Paroxysmal atrial fibrillation Conclusion/Plan: Single episode of paroxysmal atrial fibrillation in the ED resolved with oral diltiazem Patient states he takes diltiazem as needed, usually averaging about once per mo nth Continue to monitor and resume as needed diltiazem or schedule if events become more frequent (4) Bladder diverticulum Conclusion/Plan: As above, patient warrants inpatient neurologic consultation given repeated attempts to manage as outpatient Continue to attempt transfer, will need to reattempt tomorrow - Lab Results Lab results reviewed: Yes Vu Bones: 12/10/20 13:53 12/10/20 13:53 - Diagnostic Imaging Results Diagnostic Imaging Results: positive: Final report reviewed - EKG Results EKG Comparison: No prior EKG Core Measures - Anticipated LOS I expect patient to be DC'd or transferred within 96 hours.: Yes - DVT/VTE - Prophylaxis VTE/DVT Device ordered at admit?: Yes
--- NOTE | 2020-12-11 01:09 | DISCHARGE SUMMARY ---
"Discharge Summary Admit Date: 12/10/20 Discharge Date: 12/11/20 Discharging Provider: Fito Griffin MD Primary Care Provider: Zoey Moy MD Code Status: Do Not Attempt Resuscitation Condition at Discharge: Stable Discharge Disposition: 02 Transfer Acute Care Hosp - DIAGNOSES Admission Diagnoses: Gross Hematuria Discharge Diagnoses with Status of Each Condition: Gross Hematuria - Stable, Unchanged Acute Blood Loss Anemia, Present on Adsmssion - Unchanged Paroxysmal Atrial Fibirllation - Stable Bladder Diverticulum - Stable, Unchanged - HPI History of Present Illness: Patient is a relatively healthy 75-year-old male who has history of Paroxysmal atrial fibrillation, not on anticoagulants, receiving testosterone replacement, who presented to the emergency room initiallyOn December 07, 2020 due to sudden onset of gross hematuria without any injury, medical procedure, or other known causes. He was seen in the emergency room and given a Hubbard catheter and discharged home with recommendations to follow-up with urology with scheduled outpatient urology clinic. He returned to the following day due to concerns of increasing amounts of gross hematuria along with clot formation noted in the Hubbard bag. CT scan of the abdomen pelvis was showing diverticuli of the bladder as the cause of this bleeding, and he had successful continuous bladder irrigation with clearance of the clots and was discharged home again. He presented to the emergency department again yesterday at [facility] for the same concerns and again had continuous bladder irrigation was sent home. He returned the third time in our ED and fourth visits in total for the same gross hematuria with clots. He had some bladder irrigation in the ER again today with liberation of clots, however this time his hemoglobin and hematocrit showed a significant drop From 11.3/33.0 2 days ago down to 8.8/26.7 todayan attempt was made to transfer the patient for inpatient urology assessment.He is required by his insurance to go to the [facility] however they do not have beds available, So Dr. Monson proceeded to attempt to transfer to other [facility] for urology consultation however no beds are available so admission here was requested pending successful transfer for inpatient urologica l consultation. In the ED, he was relatively stable with vital signs essentially normal or at times with moderately low blood pressures. He is otherwise asymptomatic not complaining of any pain, nausea, vomiting, fever, chills. He has some mild discomfort in the bladder but states he is able to manage that and has been able to massage with relief of pain and passage of clots. - CONSULTS | PROCEDURES Procedures: Continuous Bladder Irrigation - HOSPITAL COURSE Hospital Course: Patient was admitted to the medical floor in stable condition without any changes from the history and physical. Within a few hours, [place] [facility] [place] and he was accepted for transfer. At this time, discharge was initiated. - ALLERGIES Allergies/Adverse Reactions: Allergies Allergy/AdvReac Type Severity Reaction Status Date / Time Penicillins Allergy Unknown Verified 12/10/20 10:01 Milk Containing Products AdvReac Intermediate Cramps Verified 12/10/20 22:03 egg AdvReac Mild Hives Verified 12/10/20 22:01 - MEDICATIONS Home Medications: Ambulatory Orders Medication Instructions Recorded Confirmed Anastrozole 0.5 mg PO DAILY 09/16/20 12/10/20 Sildenafil Citrate [Revatio] 1 tab PO DAILY 09/16/20 12/10/20 Testosterone [Androgel] 1 applic TOP ONCE 09/16/20 12/10/20 diltiaZEM [Cardizem] 60 mg PO ONCE PRN #5 tab 09/16/20 12/10/20 - PHYSICAL EXAM AT DISCHARGE General Appearance: positive: No acute distress Eyes Bilateral: positive: Normal inspection Neck: positive: Nml inspection Respiratory: positive: Chest non-tender Cardiovascular: positive: Regular rate & rhythm, No murmur, No gallop Peripheral Pulses: positive: 2+ Abdomen: positive: Non-tender Extremities: positive: Non-tender, Full ROM, Nml appearance Neurologic/Psychiatric: positive: Oriented x3, CN's nml (2-12) - LABS Result Diagrams: 12/10/20 13:53 12/10/20 13:53 - DIAGNOSTIC IMAGING Diagnostic Imaging Results: Final report reviewed - FOLLOW UP Follow Up: Pending Hospital Course - TIME SPENT Time Spent in Discharge (Minutes): 33"
--- NOTE | 2020-12-11 01:15 | Discharge Plan ---
Discharge Plan Problem Reviewed?: Yes Disposition: 02 Transfer Acute Care Hosp Condition: Stable Diet: Regular Activity Restrictions: Activity as Tolerated Shower Restrictions: No Driving Restrictions: No Additional Instructions or Follow Up instructions: Use the saline to irrigate the bladder periodically through the day through the Hubbard. As of this instruction time, neither Dr. Flores nor the [place] urology have called back. I would not anticipate them wanting to transfer you there directly today. As such I think we can discharge you home and when they do call I will try to arrange a closer follow-up with them for you. Call Dr. Flores's office tomorrow to see if they can expedite further follow- up or referrals. No Smoking: If you smoke, Please STOP! Call for help. Follow-up with: [facility] [Provider Group] KENZIE FLORES MD [Physician No Access] -
[2020-12-11] MEDS: SODIUM CHLORIDE FLUSH 0.9% 10 ML SYRINGE IVP SCH ×2 (05:37→08:58)
[2020-12-11 05:45] LABS: HCT - HEMATOCRIT 20.2 % (42.0-52.0); MEAN CORPUSCULAR HEMOGLOBIN 33.3 pg (27.0-31.0); MEAN CORPUSCULAR HGB CONC 33.7 g/dL (32.0-36.0); MEAN PLATELET VOLUME 9.2 fL (7.4-11.4); RED BLOOD COUNT 2.04 10^6/uL (4.70-6.10); RED CELL DISTRIBUTION WIDTH 12.1 % (12.0-15.0); WHITE BLOOD COUNT 7.3 x10^3/uL (4.8-10.8)
[2020-12-11 05:47] LABS: HGB - HEMOGLOBIN 6.8 g/dL (14.0-18.0)
[2020-12-11 05:53] LABS: CALCIUM 8.6 mg/dL (8.5-10.3); CREATININE 0.9 mg/dL (0.6-1.2); POTASSIUM 3.8 mmol/L (3.5-5.0)
[2020-12-11] MEDS ORDERED: diphenhydrAMINE 25 MG CAPSULE PO ONE (06:41)
[2020-12-11] MEDS ORDERED: ANASTROZOLE 1 MG TABLET PO SCH (09:00)
--- NOTE | 2020-12-11 11:17 | PHARMACY PROGRESS NOTE ---
- Best Possible Medication History Admit Date and Time: 12/10/202030 Processed by: Pharmacy Medication History completed: Yes Patient Interview: Completed Secondary Source(s): Insurance records Patient does not recall what strength of tadalafil he takes daily but he believes it is the lowest strength. He reports taking his testosterone cream and anastrazole tablet twice a week on Sundays and Wednesdays for hormone replacement. As the person ultimately responsible for medication therapy, providers are able to order a medication from an existing home medication list in [facility] via the "Reconcile Routine" prior to Confirmation of that medication by network support analyst. Such practice is discouraged except when the physician, in their clinical judgment, deems that a medical need exists for a medication without regard to previous use.
[2020-12-11 13:07] LABS: HCT - HEMATOCRIT 25.4 % (42.0-52.0); HGB - HEMOGLOBIN 8.8 g/dL (14.0-18.0)
--- NOTE | 2020-12-11 14:55 | PROVIDER PROGRESS NOTE ---
Hospitalist Cross-cover Note - Cross-Cover Note Cross-Cover Note: I got report pt was already accepted by [facility], and pt is waiting for bed available. I called [facility] this afternoon but pt actually was not accepted yet. There was some miscommunication.Then I report pt to Dr. Garzon Urologist, he accepted pt. I also reported to hospitalist, pt is accepted. [facility] bed has bed available now. Charge nurse Imelda will help transfer pt.
[2020-12-11 16:31] VITALS: BP 126/55
== END 2020-12-11 17:45 | disposition short-term general hospital (02) ==
LOC: ED 09:42 → MS2 20:31
PROVIDERS: ADMIT Family Medicine Sports Medicine; ATTEND Family Medicine Sports Medicine
DX: D62 Acute posthemorrhagic anemia (principal); R31.0 Gross hematuria; N32.3 Diverticulum of bladder; I48.0 Paroxysmal atrial fibrillation; N40.1 Benign prostatic hyperplasia with lower urinary tract symptoms; R33.8 Other retention of urine; Z20.822 Contact with and (suspected) exposure to COVID-19; Z79.899 Other long term (current) drug therapy; Z79.82 Long term (current) use of aspirin
CPT/HCPCS: 0202U; 36415; 36430; 51700; 51798; 80048; 80053; 83690; 85014; 85018; 85025; 85027; 86850; 86900; 86901; 86920; 93005; 96374; 99283; 99285; A9270; G0378; P9016

== ENCOUNTER 2020-12-11 17:46 | Outpatient (CLI) | payer OTHER | END 2020-12-11 17:47 | disposition short-term general hospital (02) | LOC: EMS 17:46 | DX: R31.0 Gross hematuria (principal); Z74.01 Bed confinement status | CPT/HCPCS: A0425; A0428 ==

== ENCOUNTER 2020-12-15 14:23 | Emergency (ER) | payer OTHER ==
--- NOTE | 2020-12-15 14:55 | ED Physician Documentation ---
History of Present Illness - Stated complaint Stated Complaint: MALE - Chief complaint Chief Complaint: General - History obtained from History obtained from: Patient - History of Present Illness Timing: Today Pain level max: 0 Pain level now: 0 - Additonal information Additional information: 75-year-old male presents to the emergency department stating he had a urinary catheter placed for hematuria. He states that he was discharged from [facility] yesterday. They wanted to remove the catheter at that time, but the patient refused. Patient is here to have the catheter removed today. No further bleeding. No shortness of breath. No cough. No chest pain. Nothing makes it better or worse. Currently on ciprofloxacin. He states that they wanted to give him a blood transfusion yesterday, but the hospital was out of blood. He is requesting a recheck of his hemoglobin today. Review of Systems Ten Systems: 10 systems reviewed and negative Constitutional: denies: Fever, Chills Ears: denies: Ear pain Nose: denies: Rhinorrhea / runny nose, Congestion Throat: denies: Sore throat Cardiac: denies: Palpitations, Calf pain Respiratory: denies: Cough GI: denies: Abdominal Pain, Vomiting, Diarrhea : denies: Dysuria Skin: denies: Rash PD PAST MEDICAL HISTORY - Past Medical History Cardiovascular: Atrial fibrillation, Arrhythmia Respiratory: None Neuro: None Endocrine/Autoimmune: None : Benign prostate hypertrophy, Retention, Other HEENT: None Psych: None Musculoskeletal: None - Past Surgical History Past Surgical History: Yes HEENT: Tonsil/Adenoidectomy - Present Medications Home Medications: Ambulatory Orders Medication Instructions Recorded Confirmed Anastrozole 1 mg PO WE 09/16/20 12/15/20 Testosterone [Androgel] 1 applic TOP 09/16/20 12/15/20 diltiaZEM [Cardizem] 60 mg PO ONCE PRN #5 tab 09/16/20 12/15/20 Ascorbic Acid [Vitamin C] 1,000 mg PO DAILY 12/11/20 12/15/20 Multivitamin 1 tab PO DAILY 12/11/20 12/15/20 Tadalafil [Cialis] 5 mg PO DAILY 12/11/20 12/15/20 - Allergies Allergies/Adverse Reactions: Allergies Allergy/AdvReac Type Severity Reaction Status Date / Time Penicillins Allergy Unknown Verified 05/15/21 14:31 Milk Containing Products AdvReac Intermediate Cramps Verified 12/15/20 14:31 egg AdvReac Mild Hives Verified 12/15/20 14:31 - Social History Does the pt smoke?: No Smoking Status: Never smoker Does the pt drink ETOH?: No Does the pt have substance abuse?: No - Immunizations Immunizations are current?: Yes - POLST Patient has POLST: No POLST Status: CPR Yes, Intubation No PD ED PE NORMAL - Vitals Vital signs reviewed: Yes - General General: Alert and oriented X 3, No acute distress, Well developed/nourished - HEENT HEENT: Moist mucous membranes - Neck Neck: Supple, no meningeal sign - Cardiac Cardiac: RRR, Strong equal pulses - Respiratory Respiratory: No respiratory distress, Clear bilaterally - Abdomen Abdomen: Soft, Non tender, Non distended - Derm Derm: Warm and dry - Extremities Extremities: No edema, No calf tenderness / cord - Neuro Neuro: Alert and oriented X 3 - Psych Psych: Normal mood, Normal affect Results - Vitals Vitals: Vital Signs - 24 hr 12/15/20 12/15/20 14:31 15:43 Temperature 37.6 C 37.5 C Heart Rate 99 78 Respiratory 18 18 Rate Blood Pressure 122/94 H 127/77 O2 Saturation 100 100 Oxygen O2 Source Room air - Labs Labs: Laboratory Tests 12/15/20 15:01 WBC 5.7 RBC 2.37 L Hgb 7.7 L Hct 23.5 L MCV 99.2 H MCH 32.5 H MCHC 32.8 RDW 14.6 Plt Count 200 MPV 8.4 Neut # (Auto) 4.5 Lymph # (Auto) 0.6 L Winkler # (Auto) 0.6 Eos # (Auto) 0.0 Baso # (Auto) 0.0 Absolute Nucleated RBC 0.00 Nucleated RBC % 0.0 PD MEDICAL DECISION MAKING - ED course Complexity details: reviewed old records, reviewed results, re-evaluated patient, considered differential, d/w patient ED course: Mild anemia. Not significantly symptomatic. Likely that this will improve now that his bleeding has resolved. Given the current blood shortage, will hold off on transfusion and have his hemoglobin rechecked with his doctor in 2 to 3 days. Patient is comfortable with this plan. Hubbard catheter was removed and he will return if he is unable to urinate at home. Patient counseled regarding signs and symptoms for which I believe and urgent re-evaluation would be necessary. Patient with good understanding of and agreement to plan and is comfortable going home at this time This document was made in part using voice recognition software. While efforts are made to proofread this document, sound alike and grammatical errors may occur. Departure - Departure Disposition: Home, Self Care Clinical Impression: Encounter for Hubbard catheter removal Anemia Qualifiers: Anemia type: unspecified type Qualified Code(s): D64.9 - Anemia, unspecified Condition: Good Instructions: ED Anemia Type Not Specified Follow-Up: KENZIE FLORES MD [Primary Care Provider] - Within 1 week Comments: Your hemoglobin in 7.7 today. You should have your blood counts rechecked with your doctor on Thursday or Thursday. There is currently a blood shortage and as your symptoms are currently mild, we will hold off on transfusion today to see if this improves. If you worsen, develop worsening shortness of breath, chest pain or other symptoms, please return. As your bleeding has stopped, your hemoglobin should begin to improve on its own. Discharge Date/Time: 12/15/20 15:44
[2020-12-15 15:07] LABS: BASOPHILS % (AUTO) 0.3 %; HCT - HEMATOCRIT 23.5 % (42.0-52.0); HGB - HEMOGLOBIN 7.7 g/dL (14.0-18.0); LYMPHOCYTES # (AUTO) 0.6 10^3/uL (1.5-3.5); LYMPHOCYTES % (AUTO) 10.3 %; MEAN CORPUSCULAR HEMOGLOBIN 32.5 pg (27.0-31.0); MEAN CORPUSCULAR HGB CONC 32.8 g/dL (32.0-36.0); MEAN CORPUSCULAR VOLUME 99.2 fL (80.0-94.0); MEAN PLATELET VOLUME 8.4 fL (7.4-11.4); MONOCYTES # (AUTO) 0.6 10^3/uL (0.0-1.0); MONOCYTES % (AUTO) 10.3 %; NEUTROPHILS # (AUTO) 4.5 10^3/uL (1.5-6.6); NEUTROPHILS % (AUTO) 77.9 %; PLT - PLATELET COUNT 200 10^3/uL (130-450); RED BLOOD COUNT 2.37 10^6/uL (4.70-6.10); RED CELL DISTRIBUTION WIDTH 14.6 % (12.0-15.0); WHITE BLOOD COUNT 5.7 x10^3/uL (4.8-10.8)
[2020-12-15 15:44] VITALS: BP 127/77
== END 2020-12-15 15:44 | disposition home or self-care (01) ==
LOC: ED 14:23
DX: Z46.6 Encounter for fitting and adjustment of urinary device (principal); I48.91 Unspecified atrial fibrillation; D64.9 Anemia, unspecified
CPT/HCPCS: 36415; 85025; 99282; 99283

== ENCOUNTER 2020-12-16 02:40 | Emergency (ER) | payer OTHER ==
[2020-12-16 02:48] VITALS: BP 123/57
--- NOTE | 2020-12-16 02:51 | ED Physician Documentation ---
PD HPI MALE - Stated complaint Stated Complaint: MALE - Chief complaint Chief Complaint: Abd Pain - History obtained from History obtained from: Patient - History of Present Illness Timing - onset: Last night Timing - details: Gradual onset, Constant Pain level now: 8 Associated symptoms: Unable to urinate Recently seen: Emergency Dept - Additional information Additional information: patient was admitted to [facility] 12/10 due to ongoing hematuria through a abrams catheter that had been placed few days earlier in [facility] ED, subsequently transferred to [facility]. Patient says he was diagnosed with hemorrhagic cystitis, was not placed on antibiotic. He says it was recommended that the abrams catheter be removed prior to being discharged from [facility] but he wanted to leave it in at that time. He then came to [facility] yesterday afternoon (approximately 12 hours prior to his current ED visit) for removal of the catheter; this was removed in ED without incident. Unfortunately, he has had decreasing urine output all evening and tonight with increasing suprapubic pressure and urge to urinate Review of Systems Constitutional: denies: Fever, Chills, Sweats GI: reports: Abdominal Pain (suprapubic pain/pressure). denies: Nausea, Vomiting : reports: Unable to Void PD PAST MEDICAL HISTORY - Past Medical History Cardiovascular: Atrial fibrillation, Arrhythmia Respiratory: None Neuro: None Endocrine/Autoimmune: None : Benign prostate hypertrophy, Retention, Other HEENT: None Psych: None Musculoskeletal: None - Past Surgical History Past Surgical History: Yes HEENT: Tonsil/Adenoidectomy - Present Medications Home Medications: Ambulatory Orders Medication Instructions Recorded Confirmed Anastrozole 1 mg PO SUWE 09/16/20 12/15/20 Testosterone [Androgel] 1 applic TOP WE 09/16/20 12/15/20 diltiaZEM [Cardizem] 60 mg PO ONCE PRN #5 tab 09/16/20 12/15/20 Ascorbic Acid [Vitamin C] 1,000 mg PO DAILY 12/11/20 12/15/20 Multivitamin 1 tab PO DAILY 12/11/20 12/15/20 Tadalafil [Cialis] 5 mg PO DAILY 12/11/20 12/15/20 - Allergies Allergies/Adverse Reactions: Allergies Allergy/AdvReac Type Severity Reaction Status Date / Time Penicillins Allergy Unknown Verified 12/15/20 14:31 Milk Containing Products AdvReac Intermediate Cramps Verified 12/15/20 14:31 egg AdvReac Mild Hives Verified 12/15/20 14:31 - Social History Does the pt smoke?: No Smoking Status: Never smoker Does the pt drink ETOH?: No Does the pt have substance abuse?: No - Immunizations Immunizations are current?: Yes - POLST Patient has POLST: No POLST Status: CPR Yes, Intubation No PD ED PE NORMAL - Vitals Vital signs reviewed: Yes - General General: Alert and oriented X 3, Well developed/nourished, Other (appears uncomfortable, mild/moderate painful distress) - Abdomen Abdomen: Soft, Other (mild suprapubic distention and tenderness) - Back Back: No CVA TTP Results - Vitals Vitals: Vital Signs - 24 hr 12/16/20 02:46 Temperature 36.6 C Heart Rate 94 Respiratory 18 Rate Blood Pressure 123/57 L O2 Saturation 100 Oxygen O2 Source Room air PD MEDICAL DECISION MAKING - ED course Complexity details: reviewed old records, reviewed results, re-evaluated patient, d/w patient ED course: ED RN placed abrams without difficulty or resistance and 450 cc clear yellow urine output associated with complete relief of his symptoms. Sent home with abrams in place. There is no hematuria nor clots noted. He will contact his urologist Thursday to discuss follow up arrangements Departure - Departure Disposition: Home, Self Care Clinical Impression: Urinary retention Condition: Good Instructions: ED Catheter Care Abrams, ED Retention Urinary Male Comments: Follow up with your urologist; call Thursday when the office opens to arrange for next available appointment Discharge Date/Time: 12/16/20 03:30
== END 2020-12-16 03:30 | disposition home or self-care (01) ==
LOC: ED 02:40
DX: R33.9 Retention of urine, unspecified (principal); I48.91 Unspecified atrial fibrillation
CPT/HCPCS: 51702; 51798; 99283

== ENCOUNTER 2023-10-14 08:00 | Outpatient (CLI) | payer OTHER ==
[2023-10-14 20:50] LABS: BILIRUBIN,URINE NEGATIVE (NEGATIVE); GLUCOSE, URINE (UA) NEGATIVE (NEGATIVE); KETONES,URINE (UA) NEGATIVE (NEGATIVE); LEUKOCYTE ESTERASE, URINE SMALL (NEGATIVE); NITRITE,URINE POSITIVE (NEGATIVE); OCCULT BLOOD,URINE TRACE-INTA (NEGATIVE); PH,URINE 5.5 PH (5.0-7.5); PROTEIN,URINE NEGATIVE (NEGATIVE); UROBILINOGEN,URINE 0.2 (NORMAL) E.U./dL (NORMAL)
[2023-10-14 20:52] LABS: CLARITY,URINE CLEAR (CLEAR)
[2023-10-14 21:12] LABS: BACTERIA,URINE Many /HPF (None Seen); CRYSTALS,URINE 6-10 Calcium Oxalate /LPF; SQUAMOUS EPITHELIAL CELL,UR FEW Squamous (<= Few); WBC,URINE >25 /HPF (0-3)
== END 2023-10-14 23:59 | disposition home or self-care (01) ==
LOC: LAB.N 08:00
PROVIDERS: ATTEND Nurse Practitioner Family
DX: R97.20 Elevated prostate specific antigen [PSA] (principal); R31.9 Hematuria, unspecified; R30.9 Painful micturition, unspecified
CPT/HCPCS: 81001; 87077; 87086; 87181

== ENCOUNTER 2023-11-19 09:18 | Emergency (ER) | payer OTHER ==
--- NOTE | 2023-11-19 09:47 | ED Physician Documentation ---
PD HPI MALE - Stated complaint Stated Complaint: GI - Chief complaint Chief Complaint: Abd Pain - History obtained from History obtained from: Patient - Additional information Additional information: The patient comes to the emergency department chief complaint of increasing urinary retention of about the last month. He has a known history of prostatic hypertrophy and has had to have a catheter placed for urinary retention before, though it has been a few years ago. He states that at that same time, he had hematuria that was persistent and finally had to have his bladder washed out in the operating room by urology. He states that he has not had any problems since, though he was told he would need a biopsy of his prostate and he has been putting this off. However, he is now scheduled to be seen at the [facility] to have this done in the next couple weeks. The patient denies any dysuria or hematuria at this time. He states that he will be able to urinate for about 20 seconds and then it just stops and he feels as though he is not emptying his bladder completely. He feels like he is just building up more and more urine. He denies any fevers or chills. He has been drinking water to try to get himself to urinate. No other complaints at this time. PD PAST MEDICAL HISTORY - Past Medical History Past Medical History: Yes Cardiovascular: Atrial fibrillation, Arrhythmia Respiratory: None Neuro: None Endocrine/Autoimmune: None GI: None : Benign prostate hypertrophy, Retention, Other HEENT: None Psych: None Musculoskeletal: None Derm: None - Past Surgical History Past Surgical History: Yes HEENT: Tonsil/Adenoidectomy - Present Medications Home Medications: Ambulatory Orders Medication Instructions Recorded Confirmed Anastrozole 1 mg PO WE 09/16/20 12/15/20 Testosterone [Androgel] 1 applic TOP WE 09/16/20 12/15/20 diltiaZEM [Cardizem] 60 mg PO ONCE PRN #5 tab 09/16/20 12/15/20 Ascorbic Acid [Vitamin C] 1,000 mg PO DAILY 12/11/20 12/15/20 Multivitamin 1 tab PO DAILY 12/11/20 12/15/20 Tadalafil [Cialis] 5 mg PO DAILY 12/11/20 12/15/20 - Allergies Allergies/Adverse Reactions: Allergies Allergy/AdvReac Type Severity Reaction Status Date / Time Penicillins Allergy Unknown Verified 11/19/23 09:29 Milk Containing Products AdvReac Intermediate Cramps Verified 11/19/23 09:29 (Dairy) [Milk Containing Products] egg AdvReac Mild Hives Verified 11/19/23 09:29 - Social History Does the pt smoke?: No Smoking Status: Never smoker Does the pt drink ETOH?: No Does the pt have substance abuse?: No - Immunizations Immunizations are current?: Yes - POLST Patient has POLST: No POLST Status: CPR Yes, Intubation No PD ED PE NORMAL - Vitals Vital signs reviewed: Yes - General General: Alert and oriented X 3, No acute distress, Well developed/nourished - HEENT HEENT: Atraumatic, EOMI, Moist mucous membranes - Neck Neck: Supple, no meningeal sign - Cardiac Cardiac: RRR, No murmur, Strong equal pulses - Respiratory Respiratory: No respiratory distress, Clear bilaterally - Abdomen Abdomen: Soft, Other (Some discomfort with palpation over the bladder, which is quite enlarged and extends up to his umbilicus. Moderate abdominal distention. No rebound or guarding.) - Derm Derm: Normal color, Warm and dry, No rash - Extremities Extremities: No deformity - Neuro Neuro: Other (Grossly intact) - Psych Psych: Normal mood, Normal affect Results - Vitals Vitals: Oxygen O2 Source Room air - Labs Labs: Laboratory Tests 11/19/23 10:15 Urine Color YELLOW Urine Clarity CLEAR Urine pH 5.5 Ur Specific [place] 1.010 Urine Protein NEGATIVE Urine Glucose (UA) NEGATIVE Urine Ketones NEGATIVE Urine Occult Blood TRACE-INTA Urine Nitrite NEGATIVE Urine Bilirubin NEGATIVE Urine Urobilinogen 0.2 (NORMAL) Ur Leukocyte Esterase NEGATIVE Ur Microscopic Review NOT INDICATED Urine Culture Comments NOT INDICATED PD Medical Decision Making - ED course Complexity details: reviewed results, re-evaluated patient, considered differential, d/w patient ED course: Bladder scan was performed and Hubbard catheter was placed. Urinalysis was sent and negative. I have advised the pt to follow up with his urologist as planned, to have the catheter removed. We have discussed the usual indications for return. Departure - Departure Disposition: 01 Home, Self Care Clinical Impression: Urinary retention Condition: Stable Instructions: ED Catheter Care Hubbard, ED Retention Urinary Male Comments: A catheter has been placed and should be left in place until you see the urologist. Please continue your plans to keep your appointment that is coming up, as scheduled. Please drink plenty of fluids to keep your bladder flushing. Forms: PCP List Discharge Date/Time: 11/19/23 11:41
[2023-11-19] MEDS: PROPARACAINE 0.5% OPHTH DROPS 15 ML EACHEYE STA (10:11)
[2023-11-19 10:30] LABS: BILIRUBIN,URINE NEGATIVE (NEGATIVE); GLUCOSE, URINE (UA) NEGATIVE (NEGATIVE); KETONES,URINE (UA) NEGATIVE (NEGATIVE); LEUKOCYTE ESTERASE, URINE NEGATIVE (NEGATIVE); NITRITE,URINE NEGATIVE (NEGATIVE); OCCULT BLOOD,URINE TRACE-INTA (NEGATIVE); PH,URINE 5.5 PH (5.0-7.5); PROTEIN,URINE NEGATIVE (NEGATIVE); UROBILINOGEN,URINE 0.2 (NORMAL) E.U./dL (NORMAL)
[2023-11-19 10:34] LABS: CLARITY,URINE CLEAR (CLEAR)
[2023-11-19 11:51] VITALS: BP 125/62; O2SAT 100
== END 2023-11-19 11:41 | disposition home or self-care (01) ==
LOC: ED 09:18
DX: R33.9 Retention of urine, unspecified (principal); N40.1 Benign prostatic hyperplasia with lower urinary tract symptoms; I48.91 Unspecified atrial fibrillation; I49.9 Cardiac arrhythmia, unspecified; Z79.899 Other long term (current) drug therapy
CPT/HCPCS: 51702; 51798; 81001; 81003; 87086; 99283